=== PATIENT | male | born 1955 | race Caucasian/White ===

== ENCOUNTER 2021-02-08 19:47 | Inpatient (IN) | payer OTHER, MEDICARE ==
[~2021-02-08 19:47] MED LIST: Iopamidol-370 76% 500 ML 1 ML ONE
[2021-02-08] MEDS ORDERED: Boostrix 0.5 ML (Tdap) VIAL ONE (19:54)
[2021-02-08] MEDS ORDERED: Ondansetron PF 4 MG/2 ML Vial ONE (19:56)
[2021-02-08] MEDS ORDERED: Ketamine 50 MG/ML (10ML VIAL) ONE (20:15)
[2021-02-08 20:42] LABS: #Eosinphils 0.2 thou/uL (0.0-0.7); #Lymphocytes 1.5 thou/uL (1.20-3.40); #Monocytes 0.6 thou/uL (0.11-0.59); #Neutrophils 8.5 thou/uL (1.40-6.50); %Eosinophils 1.7 % (0.0-10.0); %Lymphocytes 14.1 % (21.0-51.0); %Monocytes 5.2 % (0.0-10.0); %Neutrophils 78.9 % (42.0-75.0); Hemoglobin 12.7 g/dL (14.0-18.0); Mean Corpuscular HGB CONC 35.9 g/dL (32.0-36.0); Mean Corpuscular Hemoglobin 31.1 pg (27.0-31.0); Mean Corpuscular Volume 86.8 fL (78.0-98.0); Platelet Count 237 thou/uL (130-400); RBC Distribution Width 11.9 % (11.5-14.5); Red Blood Cell (RBC) Count 4.08 mill/uL (4.70-6.10); White Blood Cell (WBC) Count 10.7 thou/uL (4.8-10.8)
[2021-02-08 20:54] LABS: INR-International Normal Ratio 1.1; PTT 25.4 sec (22.9-36.1); Prothrombin Time 14.5 sec (12.0-14.7)
[2021-02-08 21:00] LABS: ALT (SGPT) 45 U/L (8-55); AST (SGOT) 43 U/L (5-34); Albumin 3.8 g/dL (3.4-4.8); Alkaline Phosphatase 72 U/L (40-110); Anion Gap 16 mmol/L (10-20); BUN (Urea Nitrogen) 22 mg/dL (8.4-25.7); Bilirubin, Total 0.4 mg/dL (0.2-1.2); Calc. Creatinine Clearance 0 mL/min (70-130); Carbon Dioxide 23 mmol/L (23-31); Chloride 99 mmol/L (98-107); Globulin 2.2 g/dL (2.4-3.5); Glucose 278 mg/dL (80-115); Lipase 62 U/L (8-78); Potassium 3.1 mmol/L (3.5-5.1); Sodium 135 mmol/L (136-145)
[2021-02-08] MEDS ORDERED: Morphine 2 MG/ML VIAL ONE (21:12)
[2021-02-08 22:03] VITALS: BMI 33.7
[2021-02-08] MEDS ORDERED: Cyclobenzaprine 10 MG TAB PO PRN (22:03)
[2021-02-08] MEDS ORDERED: Ondansetron PF 4 MG/2 ML Vial IVP PRN (22:03)
[2021-02-08] MEDS ORDERED: Ondansetron ODT 4 MG TAB PO PRN (22:03)
[2021-02-08] MEDS ORDERED: Dextrose 50% Abboject 50 ML SYRINGE SLOW IVP PRN (22:03)
[2021-02-08] MEDS ORDERED: Morphine 2 MG/ML VIAL SLOW IVP PRN (22:03)
[2021-02-08] MEDS ORDERED: Dextrose 5% in Water 1,000 ML IV PRN (22:03)
[2021-02-08] MEDS ORDERED: Promethazine HCl 25 MG/ML VIAL IM PRN (22:03)
[2021-02-08] MEDS ORDERED: hydrALAZINE 20 MG/ML VIAL SLOW IVP PRN (22:03)
[2021-02-08] MEDS ORDERED: traMADol HCl 50 MG TAB PO PRN (22:03)
[2021-02-08] MEDS ORDERED: Ketorolac Tromethamine 30 MG/ML VIAL IVP SCH (22:15)
[2021-02-08] MEDS ORDERED: Famotidine 20 MG TAB PO SCH (22:15)
[2021-02-08] MEDS: Sodium Chloride 0.9% 1,000 ML IV SCH (22:31)
[2021-02-08] MEDS: traMADol HCl 50 MG TAB PO SCH (23:03)
[2021-02-08] MEDS: Acetaminophen 500 MG TAB PO SCH (23:04)
[2021-02-09] MEDS: Acetaminophen 500 MG TAB PO SCH ×3 (05:06→23:52)
[2021-02-09] MEDS: traMADol HCl 50 MG TAB PO SCH ×3 (05:08→23:50)
[2021-02-09 05:27] LABS: #Lymphocytes 0.5 thou/uL (1.20-3.40); #Monocytes 0.6 thou/uL (0.11-0.59); #Neutrophils 5.2 thou/uL (1.40-6.50); %Basophils 0.1 % (0.0-1.0); %Eosinophils 0.1 % (0.0-10.0); %Lymphocytes 7.8 % (21.0-51.0); %Monocytes 9.3 % (0.0-10.0); %Neutrophils 82.8 % (42.0-75.0); Hemoglobin 10.5 g/dL (14.0-18.0); Mean Corpuscular HGB CONC 34.2 g/dL (32.0-36.0); Mean Corpuscular Volume 87.7 fL (78.0-98.0); Mean Platelet Volume 8.1 fL (7.4-10.4); Platelet Count 218 thou/uL (130-400); RBC Distribution Width 11.8 % (11.5-14.5); Red Blood Cell (RBC) Count 3.51 mill/uL (4.70-6.10); White Blood Cell (WBC) Count 6.3 thou/uL (4.8-10.8)
[2021-02-09 05:51] LABS: Anion Gap 12 mmol/L (10-20); BUN (Urea Nitrogen) 24 mg/dL (8.4-25.7); Calc. Creatinine Clearance 72 mL/min (70-130); Calcium 7.7 mg/dL (7.8-10.44); Carbon Dioxide 25 mmol/L (23-31); Chloride 104 mmol/L (98-107); Glucose 250 mg/dL (80-115); Magnesium 1.6 mg/dL (1.6-2.6); Phosphorus 2.5 mg/dL (2.3-4.7); Potassium 3.2 mmol/L (3.5-5.1); Sodium 138 mmol/L (136-145)
[2021-02-09] MEDS ORDERED: Ibuprofen 200 MG TAB PO SCH (06:00)
[2021-02-09] MEDS: Sodium Chloride 0.9% 1,000 ML IV SCH (07:00)
[2021-02-09] MEDS ORDERED: CEFAZOLIN 2 GM in Premix Bag 1 BAG IVPB SCH (08:15)
[2021-02-09] MEDS: Famotidine 20 MG TAB PO SCH ×2 (09:51→20:18)
[2021-02-09] MEDS: Gabapentin 300 MG CAP PO SCH ×2 (10:00→20:19)
[2021-02-09] MEDS ORDERED: Fentanyl 100 MCG/2 ML VIAL ONE ×3 (13:44→17:58)
[2021-02-09] MEDS ORDERED: Dexamethasone 20 MG/5 ML VIAL ONE (16:11)
[2021-02-09] MEDS ORDERED: PROPOFOL 200 MG/20 ML VIAL ONE (16:11)
[2021-02-09] MEDS ORDERED: Rocuronium Bromide 10 MG/ML (10ML VIAL) ONE (16:11)
[2021-02-09] MEDS ORDERED: Lidocaine 1% PF 5 ML VIAL ONE (16:11)
[2021-02-09] MEDS ORDERED: Glycopyrrolate 0.2 MG/ML 5 ML SYRINGE ONE (16:11)
[2021-02-09] MEDS ORDERED: PHENYLEPHRINE-NS 100 MCG/ML 10 ML SYRINGE ONE (16:11)
[2021-02-09] MEDS ORDERED: Ondansetron PF 4 MG/2 ML Vial ONE (16:11)
[2021-02-09] MEDS ORDERED: Meperidine HCl/PF 25 MG/ML VIAL ONE (17:58)
[2021-02-09] MEDS ORDERED: Morphine Sulfate 2 MG/ML SYRINGE SLOW IVP PRN (18:01)
[2021-02-09] MEDS ORDERED: Meperidine HCl/PF 25 MG/ML VIAL SLOW IVP PRN (18:01)
[2021-02-09] MEDS ORDERED: Ondansetron HCl/PF 4 MG/2 ML Vial IVP PRN (18:01)
[2021-02-09] MEDS ORDERED: Promethazine HCl 25 MG/ML VIAL IVPB PRN (18:01)
[2021-02-09] MEDS ORDERED: Promethazine HCl 25 MG/ML VIAL IM PRN (18:01)
[2021-02-09] MEDS: CEFAZOLIN 2 GM in Premix Bag 1 BAG IVPB SCH (23:52)
[2021-02-10] MEDS: traMADol HCl 50 MG TAB PO SCH ×5 (04:14→23:47)
[2021-02-10] MEDS: Acetaminophen 500 MG TAB PO SCH ×5 (04:14→23:47)
[2021-02-10 05:37] LABS: #Lymphocytes 0.4 thou/uL (1.20-3.40); #Monocytes 0.4 thou/uL (0.11-0.59); #Neutrophils 5.1 thou/uL (1.40-6.50); %Eosinophils 0.2 % (0.0-10.0); %Lymphocytes 6.8 % (21.0-51.0); %Monocytes 7.1 % (0.0-10.0); Hemoglobin 9.2 g/dL (14.0-18.0); Mean Corpuscular HGB CONC 33.8 g/dL (32.0-36.0); Mean Corpuscular Hemoglobin 29.8 pg (27.0-31.0); Mean Corpuscular Volume 88.2 fL (78.0-98.0); Mean Platelet Volume 8.1 fL (7.4-10.4); Platelet Count 210 thou/uL (130-400); Red Blood Cell (RBC) Count 3.09 mill/uL (4.70-6.10); White Blood Cell (WBC) Count 5.9 thou/uL (4.8-10.8)
[2021-02-10 07:02] LABS: Bacteria/HPF None Seen HPF (None Seen); Bilirubin Negative (Negative); Blood, Urine Negative (Negative); Clarity Clear (Clear); Glucose, Urine (Dipstick) Normal (Negative); Ketone, Urine Trace mg/dL (Negative); Leukocyte Negative Leu/uL (Negative); Nitrite Negative (Negative); Protein, Urine (Dipstick) 20 mg/dL (Neg-Trace); RBC/HPF 0-3 HPF (0-3); Specific Gravity, Urine 1.023 (1.002-1.036); Squamous Epithelial 0-3 HPF (0-3); Urobilinogen Normal mg/dL (Less than 2); WBC/HPF 0-3 HPF (0-3); pH, Urine 5.5 (5.0-9.0)
[2021-02-10 07:04] LABS: Urine Culture Reflex No No
[2021-02-10] MEDS: Famotidine 20 MG TAB PO SCH ×2 (08:42→20:38)
[2021-02-10] MEDS: Tamsulosin HCl 0.4 MG CAP PO SCH ×2 (08:43→20:38)
[2021-02-10] MEDS: Gabapentin 300 MG CAP PO SCH ×2 (08:43→20:38)
[2021-02-10] MEDS: Amlodipine 5 mg/Benazepril 10 mg CAP PO SCH (08:43)
[2021-02-10] MEDS: Hydrochlorothiazide 25 MG TAB PO SCH (08:43)
[2021-02-10] MEDS: CEFAZOLIN 2 GM in Premix Bag 1 BAG IVPB SCH (08:44)
[2021-02-10 09:36] LABS: #Lymphocytes 0.5 thou/uL (1.20-3.40); #Monocytes 0.5 thou/uL (0.11-0.59); #Neutrophils 4.8 thou/uL (1.40-6.50); %Basophils 0.1 % (0.0-1.0); %Lymphocytes 8.4 % (21.0-51.0); %Monocytes 7.9 % (0.0-10.0); %Neutrophils 83.6 % (42.0-75.0); Hemoglobin 8.8 g/dL (14.0-18.0); Mean Corpuscular HGB CONC 35.8 g/dL (32.0-36.0); Mean Corpuscular Hemoglobin 31.7 pg (27.0-31.0); Mean Corpuscular Volume 88.5 fL (78.0-98.0); Mean Platelet Volume 8.1 fL (7.4-10.4); Platelet Count 190 thou/uL (130-400); RBC Distribution Width 12.1 % (11.5-14.5); Red Blood Cell (RBC) Count 2.77 mill/uL (4.70-6.10); White Blood Cell (WBC) Count 5.7 thou/uL (4.8-10.8)
[2021-02-10 09:38] LABS: Phosphorus 2.7 mg/dL (2.3-4.7)
[2021-02-10 09:48] LABS: Anion Gap 14 mmol/L (10-20); BUN (Urea Nitrogen) 19 mg/dL (8.4-25.7); Calc. Creatinine Clearance 84 mL/min (70-130); Calcium 7.2 mg/dL (7.8-10.44); Carbon Dioxide 24 mmol/L (23-31); Chloride 102 mmol/L (98-107); Glucose 282 mg/dL (80-115); Magnesium 1.5 mg/dL (1.6-2.6); Potassium 3.1 mmol/L (3.5-5.1); Sodium 137 mmol/L (136-145)
[2021-02-10] MEDS: metFORMIN 500 MG TAB PO SCH ×2 (09:48→20:38)
[2021-02-10] MEDS: Enoxaparin Sodium 40 MG/0.4 ML SYRINGE SC SCH (09:48)
[2021-02-10] MEDS ORDERED: Potassium Phosphate 30 MMOL, Magnesium Sulfate 4 GM in Sodium Chloride 0.9% 250 ML IVPB SCH (17:00)
[2021-02-10] MEDS ORDERED: Melatonin 3 MG TAB PO PRN (19:21)
[2021-02-10] MEDS: Senokot S 8.6-50 MG TAB PO SCH (20:37)
[2021-02-10] MEDS ORDERED: Atorvastatin Calcium 20 MG TAB PO SCH (21:00)
[2021-02-10] MEDS ORDERED: Simvastatin 40 MG TAB PO SCH (21:00)
[2021-02-11 04:53] LABS: Hemoglobin 9.2 g/dL (14.0-18.0); Mean Corpuscular HGB CONC 36.1 g/dL (32.0-36.0); Mean Corpuscular Hemoglobin 31.6 pg (27.0-31.0); Mean Corpuscular Volume 87.6 fL (78.0-98.0); Mean Platelet Volume 7.6 fL (7.4-10.4); Platelet Count 207 thou/uL (130-400); RBC Distribution Width 12.1 % (11.5-14.5); Red Blood Cell (RBC) Count 2.92 mill/uL (4.70-6.10)
[2021-02-11 05:04] LABS: Band 3 % (5-11); Lymphocytes 15 % (21-51); MDiff Complete? YES; Monocytes 8 % (0-10); Neutrophil 74 % (42-75)
[2021-02-11 05:07] LABS: Anion Gap 13 mmol/L (10-20); BUN (Urea Nitrogen) 14 mg/dL (8.4-25.7); Calc. Creatinine Clearance 101 mL/min (70-130); Calcium 7.8 mg/dL (7.8-10.44); Carbon Dioxide 28 mmol/L (23-31); Chloride 100 mmol/L (98-107); Glucose 218 mg/dL (80-115); Magnesium 2.3 mg/dL (1.6-2.6); Phosphorus 2.2 mg/dL (2.3-4.7); Sodium 138 mmol/L (136-145)
[2021-02-11 05:12] LABS: Potassium 2.6 mmol/L (3.5-5.1)
[2021-02-11] MEDS: Acetaminophen 500 MG TAB PO SCH ×2 (05:54→12:44)
[2021-02-11] MEDS: traMADol HCl 50 MG TAB PO SCH ×2 (05:55→12:45)
[2021-02-11] MEDS ORDERED: Potassium Phosphate 30 MMOL in Sodium Chloride 0.9% 250 ML 250 ML IVPB SCH (06:00)
[2021-02-11] MEDS ORDERED: Polyethylene Glycol 3350 17 GM Packet PO SCH (09:00)
[2021-02-11] MEDS: Amlodipine 5 mg/Benazepril 10 mg CAP PO SCH (09:43)
[2021-02-11] MEDS: Tamsulosin HCl 0.4 MG CAP PO SCH (09:43)
[2021-02-11] MEDS: Senokot S 8.6-50 MG TAB PO SCH (09:43)
[2021-02-11] MEDS: metFORMIN 500 MG TAB PO SCH (09:44)
[2021-02-11] MEDS: Gabapentin 300 MG CAP PO SCH (09:44)
[2021-02-11] MEDS: Hydrochlorothiazide 25 MG TAB PO SCH (09:44)
[2021-02-11] MEDS: Famotidine 20 MG TAB PO SCH (09:45)
[2021-02-11] MEDS: Enoxaparin Sodium 40 MG/0.4 ML SYRINGE SC SCH (09:46)
[2021-02-11 10:50] VITALS: BP 115/73; TEMP 97.8
== END 2021-02-11 13:23 | DRG 481 ==
LOC: ERS 19:47 → SURG A 20:59
PROVIDERS: ADMIT Surgery; ATTEND Surgery
PROC: 0QS706Z Reposition Left Upper Femur with Intramedullary Internal Fixation Device, Open Approach (ICD-10-PCS; principal; 2021-02-09)
DX: S72.22XA Displaced subtrochanteric fracture of left femur, initial encounter for closed fracture (principal); S22.42XA Multiple fractures of ribs, left side, initial encounter for closed fracture; S32.029A Unspecified fracture of second lumbar vertebra, initial encounter for closed fracture; S32.039A Unspecified fracture of third lumbar vertebra, initial encounter for closed fracture; S32.049A Unspecified fracture of fourth lumbar vertebra, initial encounter for closed fracture; N17.9 Acute kidney failure, unspecified; I10 Essential (primary) hypertension; N40.1 Benign prostatic hyperplasia with lower urinary tract symptoms; E11.9 Type 2 diabetes mellitus without complications; R33.8 Other retention of urine; Y92.411 Interstate highway as the place of occurrence of the external cause; Z79.899 Other long term (current) drug therapy; V49.50XA Passenger injured in collision with unspecified motor vehicles in traffic accident, initial encounter
CPT/HCPCS: 36415; 36416; 70450; 71045; 71260; 72125; 72170; 74177; 76000; 80048; 80053; 80307; 81001; 83690; 83735; 84100; 85007; 85025; 85027; 85610; 85730; 86850; 86900; 86901; 90471; 90715; 93005; 96374; 96375; C1713; G0390; J0690; J1100; J1650; J1885; J2175; J2270; J2405; J2704; J3010; J3475; J7030; J7050; Q9967

== ENCOUNTER 2021-02-26 09:56 | Outpatient (CLI) | payer OTHER, MEDICARE | END 2021-02-26 09:57 | disposition home or self-care (01) | LOC: BICRAD 09:56 | PROVIDERS: ATTEND Surgery | DX: V89.2XXA Person injured in unspecified motor-vehicle accident, traffic, initial encounter (principal); J90 Pleural effusion, not elsewhere classified | CPT/HCPCS: 71046 ==

== ENCOUNTER 2022-04-13 10:57 | Outpatient (CLI) | payer MEDICARE, OTHER ==
[2022-04-13 12:03] LABS: Hemoglobin 12.5 g/dL (13.5-17.5); Mean Corpuscular Hemoglobin 28.9 pg (27.0-33.0); Mean Corpuscular Volume 87.7 fl (81.2-95.1); Mean Platelet Volume 10.4 fl (7.4-10.4); Platelet Count 210 10x3/uL (150-450); RBC Distribution Width 13.3 % (11.5-14.5); Red Blood Cell (RBC) Count 4.32 10x6/uL (4.32-5.72)
[2022-04-13 12:09] LABS: Anion Gap 15 mmol/L (10-20); BUN (Urea Nitrogen) 22 mg/dL (8.4-25.7); Calc. Creatinine Clearance 0 mL/min (70-130); Carbon Dioxide 28 mmol/L (23-31); Chloride 102 mmol/L (98-107); Estimated GFR 59; Glucose 186 mg/dL (80-115); Potassium 3.8 mmol/L (3.5-5.1); Sodium 141 mmol/L (136-145)
[2022-04-13 12:11] LABS: Prothrombin Time 10.5 sec (9.5-12.1)
[2022-04-13 13:02] LABS: Bilirubin Neg (Negative); Blood, Urine Negative (Negative); Clarity Clear (Clear); Glucose, Urine (Dipstick) Normal (Negative); Ketone, Urine Negative (Negative); Leukocyte Negative (Negative); Nitrite Negative (Negative); Protein, Urine (Dipstick) Negative (Neg-Trace); Specific Gravity, Urine 1.015 (1.002-1.036); Urobilinogen Normal mg/dL (Less than 2)
[2022-04-13 13:20] LABS: RBC/HPF 0-3 HPF (0-3); Squamous Epithelial 0-3 HPF (0-3); WBC/HPF 0-3 HPF (0-3)
[2022-04-13 13:21] LABS: Bacteria/HPF Rare-Few HPF (None Seen); Mucous/LPF 1+ LPF (<2+)
== END 2022-04-13 10:58 | disposition home or self-care (01) ==
LOC: LABBT 10:57
PROVIDERS: ATTEND Urology
DX: Z01.818 Encounter for other preprocedural examination (principal); Z20.822 Contact with and (suspected) exposure to COVID-19
CPT/HCPCS: 80048; 81001; 85027; 85610; 85730; 87086; 87811; 93005; 93010

== ENCOUNTER 2022-04-15 05:35 | Observation (INO) | payer MEDICARE, OTHER ==
[2022-04-13 13:16] VITALS: BMI 32.3
[2022-04-15] MEDS ORDERED: fentaNYL Citrate/PF 100 MCG/2 ML SYRINGE ONE (06:23)
[2022-04-15] MEDS ORDERED: Dexmedetomidine 200 MCG/2 ML VIAL ONE (06:24)
[2022-04-15] MEDS ORDERED: B & O ONE (07:26)
[2022-04-15] MEDS ORDERED: Levofloxacin 500 mg/D5W 100 ml Premix Bag ONE (07:35)
[2022-04-15] MEDS ORDERED: PROPOFOL 200 MG/20 ML VIAL ONE (07:50)
[2022-04-15] MEDS ORDERED: Dexamethasone 20 MG/5 ML VIAL ONE (07:50)
[2022-04-15] MEDS ORDERED: Glycopyrrolate 0.2 MG/ML 5 ML SYRINGE ONE (07:50)
[2022-04-15] MEDS ORDERED: Ondansetron PF 4 MG/2 ML Vial ONE (07:50)
[2022-04-15] MEDS ORDERED: Hyoscyamine Sulfate SL 0.125 mg Tablet SL PRN (09:06)
[2022-04-15] MEDS ORDERED: Acetaminophen 500 MG TAB PO PRN (09:06)
[2022-04-15] MEDS ORDERED: HYDROcodone/Acetaminophen 5/325 mg Tablet PO PRN (09:06)
[2022-04-15] MEDS ORDERED: Oxybutynin 5 MG TAB PO PRN (09:06)
[2022-04-15] MEDS ORDERED: Mag-Al 1200 mg/1200 mg/30 ML UDCUP PO PRN (09:06)
[2022-04-15] MEDS ORDERED: diphenhydrAMINE 25 MG CAP PO PRN (09:06)
[2022-04-15] MEDS ORDERED: Ondansetron PF 4 MG/2 ML Vial IVP PRN (09:06)
[2022-04-15] MEDS ORDERED: hydrALAZINE 20 MG/ML VIAL SLOW IVP PRN (09:06)
[2022-04-15] MEDS ORDERED: Morphine 2 MG/ML VIAL SLOW IVP PRN (09:06)
[2022-04-15] MEDS ORDERED: HumaLOG 300 UNITS/3 ML VIAL SC PRN (09:10)
[2022-04-15] MEDS ORDERED: Dextrose 50% Abboject 50 ML SYRINGE SLOW IVP PRN (09:10)
[2022-04-15] MEDS ORDERED: Dextrose 5% in Water 1,000 ML IV PRN (09:10)
[2022-04-15] MEDS ORDERED: traMADol HCl 50 MG TAB PO PRN (09:15)
[2022-04-15] MEDS ORDERED: Phenazopyridine HCl 95 MG TAB PO PRN (09:31)
[2022-04-15] MEDS ORDERED: Atorvastatin Calcium 20 MG TAB PO SCH (21:00)
[2022-04-15] MEDS ORDERED: Gabapentin 300 MG CAP PO SCH (21:00)
[2022-04-15] MEDS: Amitriptyline HCl 10 MG TAB PO SCH (21:13)
[2022-04-15] MEDS: metFORMIN 500 MG TAB PO SCH (21:14)
[2022-04-15] MEDS: Docusate 100 MG CAP PO SCH (21:15)
[2022-04-15] MEDS ORDERED: ALPRAZolam 0.25 MG TAB PO SCH (21:30)
[2022-04-16] MEDS: Fluticasone Propionate Nasal Spray 16 gm Bottle NASAL SCH ×2 (01:10→09:28)
[2022-04-16] MEDS: FLUOCINONIDE 0.05% TOP SCH ×2 (01:10→09:28)
[2022-04-16 05:34] LABS: #Lymphocytes 0.5 thou/uL (1.20-3.40); #Monocytes 0.5 thou/uL (0.11-0.59); #Neutrophils 6.7 thou/uL (1.40-6.50); %Eosinophils 0.2 % (0.0-10.0); %Lymphocytes 6.6 % (21.0-51.0); %Monocytes 6.1 % (0.0-10.0); %Neutrophils 87.2 % (42.0-75.0); Hemoglobin 12.4 g/dL (14.0-18.0); Mean Corpuscular HGB CONC 34.3 g/dL (32.0-36.0); Mean Corpuscular Hemoglobin 30.4 pg (27.0-31.0); Mean Corpuscular Volume 88.6 fL (78.0-98.0); Mean Platelet Volume 8.3 fL (7.4-10.4); Platelet Count 198 thou/uL (130-400); RBC Distribution Width 12.6 % (11.5-14.5); Red Blood Cell (RBC) Count 4.07 mill/uL (4.70-6.10); White Blood Cell (WBC) Count 7.7 thou/uL (4.8-10.8)
[2022-04-16 05:56] LABS: BUN (Urea Nitrogen) 20 mg/dL (8.4-25.7); Calc. Creatinine Clearance 81 mL/min (70-130); Calcium 8.2 mg/dL (7.8-10.44); Carbon Dioxide 24 mmol/L (23-31); Chloride 99 mmol/L (98-107); Estimated GFR 61; Glucose 316 mg/dL (80-115); Potassium 3.6 mmol/L (3.5-5.1); Sodium 134 mmol/L (136-145)
[2022-04-16 06:16] LABS: Anion Gap 16 mmol/L (10-20)
[2022-04-16] MEDS ORDERED: ALPRAZolam 0.25 MG TAB PO SCH ×2 (09:00→21:00)
[2022-04-16] MEDS ORDERED: Lisinopril 20 MG TAB PO SCH (09:00)
[2022-04-16] MEDS ORDERED: Amlodipine 10 MG TAB PO SCH (09:00)
[2022-04-16] MEDS ORDERED: Hydrochlorothiazide 25 MG TAB PO SCH (09:00)
[2022-04-16] MEDS ORDERED: DULoxetine 60 MG CAP PO SCH (09:00)
[2022-04-16] MEDS: metFORMIN 500 MG TAB PO SCH (09:15)
[2022-04-16] MEDS: Docusate 100 MG CAP PO SCH (09:16)
[2022-04-16] MEDS: Amitriptyline HCl 10 MG TAB PO SCH (09:28)
[2022-04-16 11:18] VITALS: BP 155/83; TEMP 98.2
== END 2022-04-16 13:56 | disposition home or self-care (01) ==
LOC: SDC 05:35 → SURG A 09:12
PROVIDERS: ADMIT Urology; ATTEND Urology
PROC: 0V507ZZ Destruction of Prostate, Via Natural or Artificial Opening (ICD-10-PCS; principal; 2022-04-15)
DX: N40.1 Benign prostatic hyperplasia with lower urinary tract symptoms (principal); N13.8 Other obstructive and reflux uropathy; R33.8 Other retention of urine; E11.9 Type 2 diabetes mellitus without complications; E78.00 Pure hypercholesterolemia, unspecified; I10 Essential (primary) hypertension; Z79.84 Long term (current) use of oral hypoglycemic drugs; Z79.899 Other long term (current) drug therapy
CPT/HCPCS: 36415; 36416; 80048; 85025; 88305; 96374; G0378; J1100; J1815; J1956; J2405; J2704

== ENCOUNTER 2022-08-20 10:06 | Outpatient (CLI) | payer MEDICARE | END 2022-08-20 10:07 | disposition home or self-care (01) | LOC: CT 10:06 | PROVIDERS: ATTEND Urology | DX: D35.01 Benign neoplasm of right adrenal gland (principal); R16.1 Splenomegaly, not elsewhere classified | CPT/HCPCS: 74170; 82565 ==

== ENCOUNTER 2023-09-08 07:38 | Outpatient (CLI) | payer MEDICARE, OTHER | END 2023-09-08 07:39 | disposition home or self-care (01) | LOC: SCSMRI 07:38 | PROVIDERS: ATTEND Nurse Practitioner Family | DX: M51.16 Intervertebral disc disorders with radiculopathy, lumbar region (principal); M47.26 Other spondylosis with radiculopathy, lumbar region; M47.817 Spondylosis without myelopathy or radiculopathy, lumbosacral region; M48.061 Spinal stenosis, lumbar region without neurogenic claudication; M96.1 Postlaminectomy syndrome, not elsewhere classified | CPT/HCPCS: 72148 ==

== ENCOUNTER 2024-03-20 15:24 | Inpatient (IN) | payer MEDICARE, OTHER ==
[~2024-03-20 15:24] MED LIST changes: -Iopamidol-370 76% 500 ML 1 ML ONE; +Iopamidol-370 76% 500 ML MDV (1 ML CHARGE) ONE
[2024-03-20 17:45] LABS: Bilirubin Negative (Negative); Blood, Urine 3+ (Negative); Clarity Clear (Clear); Glucose, Urine (Dipstick) Normal (Negative); Ketone, Urine Trace mg/dL (Negative); Leukocyte Negative Leu/uL (Negative); Nitrite Negative (Negative); Protein, Urine (Dipstick) 300 mg/dL (Neg-Trace); Specific Gravity, Urine 1.016 (1.002-1.036); Urobilinogen Normal mg/dL (Less than 2); pH, Urine 6.5 (5.0-9.0)
[2024-03-20 18:04] LABS: CAUTI Indications for Culture Dysuria,urgency,freq; RBC/HPF 21-50 HPF (0-3); WBC/HPF 0-3 HPF (0-3)
[2024-03-20 18:05] LABS: Bacteria/HPF Rare-Few HPF (None Seen)
[2024-03-20 18:06] LABS: Urine Culture Reflex No No
[2024-03-20] MEDS ORDERED: Acetaminophen 500 MG TAB ONE (20:02)
[2024-03-20] MEDS ORDERED: Losartan 25 MG TAB ONE (20:22)
[2024-03-20] MEDS ORDERED: Amlodipine 5 MG TAB ONE (20:22)
[2024-03-20 20:30] LABS: #Basophils Less than 0.03 10x3/uL (0.0-0.2); #Eosinphils Less than 0.03 10x3/uL (0.0-0.7); %Basophils 0.2 % (0.0-1.0); %Lymphocytes 8.9 % (21.0-51.0); %Monocytes 6.1 % (0.0-10.0); %Neutrophils 84.1 % (42.0-75.0); Hematocrit 34.5 % (42.0-52.0); Hemoglobin 11.7 g/dL (14.0-18.0); Mean Corpuscular HGB CONC 33.9 g/dL (32.0-36.0); Mean Corpuscular Hemoglobin 30.2 pg (27.0-31.0); Mean Corpuscular Volume 88.9 fL (78.0-98.0); Mean Platelet Volume 10.4 fL (7.4-10.4); Platelet Count 189 10x3/uL (130-400); RBC Distribution Width 13.4 % (11.5-14.5); Red Blood Cell (RBC) Count 3.88 mill/uL (4.70-6.10)
[2024-03-20 20:49] LABS: ALT (SGPT) 21 U/L (8-55); AST (SGOT) 83 U/L (5-34); Albumin 3.3 g/dL (3.4-4.8); Alkaline Phosphatase 84 U/L (40-110); Anion Gap 13 mmol/L (10-20); BUN (Urea Nitrogen) 24 mg/dL (8.4-25.7); Bilirubin, Total 0.8 mg/dL (0.2-1.2); Calc. Creatinine Clearance 0 mL/min (70-130); Calcium 8.7 mg/dL (7.8-10.44); Carbon Dioxide 25 mmol/L (23-31); Chloride 105 mmol/L (98-107); Estimated GFR 36; Glucose 123 mg/dL (80-115); Magnesium 1.7 mg/dL (1.6-2.6); Potassium 3.4 mmol/L (3.5-5.1); Protein, Total 6.3 g/dL (5.8-8.1); Sodium 140 mmol/L (136-145)
[2024-03-20 20:59] LABS: CK (CPK) 7464 U/L (30-200)
[2024-03-20 21:29] LABS: Influenza A by NAA Not Detected (NotDetected); Influenza B by NAA Not Detected (NotDetected); SARS-CoV-2 NAA Rapid Test Not Detected (NotDetected)
[2024-03-20 22:44] LABS: Phosphorus 2.2 mg/dL (2.3-4.7)
[2024-03-20] MEDS ORDERED: Oxybutynin 5 MG TAB PO PRN (23:15)
[2024-03-20] MEDS ORDERED: Ondansetron PF 4 MG/2 ML Vial IVP PRN (23:23)
[2024-03-20] MEDS ORDERED: Dextrose 5% in Water 1,000 ML IV PRN (23:23)
[2024-03-20] MEDS ORDERED: Glucagon 1 MG/ML KIT IM PRN (23:23)
[2024-03-20] MEDS ORDERED: Dextrose 50% Abboject 50 ML SYRINGE SLOW IVP PRN (23:23)
[2024-03-21] MEDS ORDERED: Potassium Chloride 20 MEQ TAB ONE ×2 (00:03→09:24)
[2024-03-21] MEDS: Potassium Chloride 20 MEQ TAB PO SCH ×2 (00:11→09:30)
[2024-03-21] MEDS: Clindamycin/D5W 900 MG in Premix 1 BAG IVPB SCH (00:11)
[2024-03-21 01:02] LABS: Troponin I 0.041 ng/mL (< 0.028)
[2024-03-21] MEDS: Lactated Ringer's 1,000 ML IV SCH ×2 (03:02→12:00)
[2024-03-21 07:12] LABS: #Basophils 0.03 10x3/uL (0.0-0.2); #Eosinphils Less than 0.03 10x3/uL (0.0-0.7); %Basophils 0.3 % (0.0-1.0); %Eosinophils 0.1 % (0.0-10.0); %Lymphocytes 7.4 % (21.0-51.0); %Monocytes 6.5 % (0.0-10.0); %Neutrophils 85.1 % (42.0-75.0); Hematocrit 32.9 % (42.0-52.0); Hemoglobin 10.9 g/dL (14.0-18.0); Mean Corpuscular HGB CONC 33.1 g/dL (32.0-36.0); Mean Corpuscular Hemoglobin 29.2 pg (27.0-31.0); Mean Corpuscular Volume 88.2 fL (78.0-98.0); Mean Platelet Volume 10.3 fL (7.4-10.4); Platelet Count 178 10x3/uL (130-400); RBC Distribution Width 13.4 % (11.5-14.5); Red Blood Cell (RBC) Count 3.73 mill/uL (4.70-6.10)
[2024-03-21 07:31] LABS: Troponin I 0.036 ng/mL (< 0.028)
[2024-03-21 07:40] LABS: CK (CPK) 5172 U/L (30-200)
[2024-03-21 07:55] LABS: Anion Gap 14 mmol/L (10-20); BUN (Urea Nitrogen) 22 mg/dL (8.4-25.7); Calc. Creatinine Clearance 0 mL/min (70-130); Calcium 8.5 mg/dL (7.8-10.44); Carbon Dioxide 23 mmol/L (23-31); Chloride 109 mmol/L (98-107); Estimated GFR 44; Glucose 132 mg/dL (80-115); Potassium 3.7 mmol/L (3.5-5.1); Sodium 142 mmol/L (136-145)
[2024-03-21] MEDS ORDERED: Amlodipine 5 MG TAB ONE (09:24)
[2024-03-21] MEDS: Amlodipine 10 MG TAB PO SCH (09:29)
[2024-03-21] MEDS: Docusate 100 MG CAP PO SCH (10:49)
[2024-03-21 17:46] VITALS: BMI 34.7
[2024-03-21] MEDS: ALPRAZolam 0.25 MG TAB PO SCH (20:22)
[2024-03-21] MEDS: DULoxetine 60 MG CAP PO SCH (20:22)
[2024-03-21] MEDS: Amitriptyline HCl 10 MG TAB PO SCH (20:22)
[2024-03-21] MEDS: Gabapentin 300 MG CAP PO SCH (20:23)
[2024-03-22 03:57] LABS: #Basophils Less than 0.03 10x3/uL (0.0-0.2); %Basophils 0.2 % (0.0-1.0); %Eosinophils 1.1 % (0.0-10.0); %Lymphocytes 14.8 % (21.0-51.0); %Monocytes 7.7 % (0.0-10.0); %Neutrophils 75.8 % (42.0-75.0); Hematocrit 33.4 % (42.0-52.0); Mean Corpuscular HGB CONC 32.9 g/dL (32.0-36.0); Mean Corpuscular Hemoglobin 29.6 pg (27.0-31.0); Mean Corpuscular Volume 89.8 fL (78.0-98.0); Mean Platelet Volume 10.3 fL (7.4-10.4); Platelet Count 200 10x3/uL (130-400); RBC Distribution Width 13.3 % (11.5-14.5); Red Blood Cell (RBC) Count 3.72 mill/uL (4.70-6.10)
[2024-03-22 04:26] LABS: Anion Gap 14 mmol/L (10-20); BUN (Urea Nitrogen) 21 mg/dL (8.4-25.7); CK (CPK) 2409 U/L (30-200); Calc. Creatinine Clearance 58 mL/min (70-130); Calcium 8.9 mg/dL (7.8-10.44); Carbon Dioxide 25 mmol/L (23-31); Chloride 107 mmol/L (98-107); Estimated GFR 40; Glucose 152 mg/dL (80-115); Potassium 3.5 mmol/L (3.5-5.1); Sodium 142 mmol/L (136-145)
[2024-03-22] MEDS: Potassium Chloride 20 MEQ TAB PO SCH (08:50)
[2024-03-22] MEDS: Lactated Ringer's 1,000 ML IV SCH (11:06)
[2024-03-22] MEDS: cefTRIAXone\\ROCEPHIN 1 GM in Sodium Chloride 0.9% 100 ML IVPB SCH (11:07)
[2024-03-22 15:45] VITALS: BMI 34.7
[2024-03-23 04:46] LABS: #Basophils Less than 0.03 10x3/uL (0.0-0.2); %Basophils 0.5 % (0.0-1.0); %Eosinophils 2.2 % (0.0-10.0); %Lymphocytes 20.3 % (21.0-51.0); %Monocytes 11.4 % (0.0-10.0); %Neutrophils 64.9 % (42.0-75.0); Hematocrit 32.5 % (42.0-52.0); Hemoglobin 10.6 g/dL (14.0-18.0); Mean Corpuscular HGB CONC 32.6 g/dL (32.0-36.0); Mean Corpuscular Hemoglobin 29.2 pg (27.0-31.0); Mean Corpuscular Volume 89.5 fL (78.0-98.0); Platelet Count 201 10x3/uL (130-400); RBC Distribution Width 13.1 % (11.5-14.5); Red Blood Cell (RBC) Count 3.63 mill/uL (4.70-6.10)
[2024-03-23] MEDS: hydrALAZINE 20 MG/ML VIAL SLOW IVP SCH (04:59)
[2024-03-23 05:06] LABS: Anion Gap 15 mmol/L (10-20); BUN (Urea Nitrogen) 18 mg/dL (8.4-25.7); CK (CPK) 1047 U/L (30-200); Calc. Creatinine Clearance 69 mL/min (70-130); Calcium 8.8 mg/dL (7.8-10.44); Carbon Dioxide 24 mmol/L (23-31); Chloride 105 mmol/L (98-107); Estimated GFR 49; Glucose 150 mg/dL (80-115); Potassium 3.6 mmol/L (3.5-5.1); Sodium 140 mmol/L (136-145)
[2024-03-23] MEDS: Lactated Ringer's 1,000 ML IV SCH (09:16)
[2024-03-23] MEDS: Losartan 25 MG TAB PO SCH ×2 (15:04→15:05)
[2024-03-23] MEDS: cefTRIAXone\\ROCEPHIN 1 GM in Sodium Chloride 0.9% 100 ML IVPB SCH (15:05)
[2024-03-23] MEDS: Magnesium 2 GM/50 ML(in water) 2 GM in Premix 1 BAG IVPB SCH (16:02)
[2024-03-23 16:13] LABS: Magnesium 1.6 mg/dL (1.6-2.6)
[2024-03-24 03:44] LABS: #Basophils Less than 0.03 10x3/uL (0.0-0.2); %Basophils 0.3 % (0.0-1.0); %Lymphocytes 18.7 % (21.0-51.0); %Monocytes 11.2 % (0.0-10.0); %Neutrophils 67.2 % (42.0-75.0); Hematocrit 31.9 % (42.0-52.0); Hemoglobin 10.7 g/dL (14.0-18.0); Mean Corpuscular HGB CONC 33.5 g/dL (32.0-36.0); Mean Corpuscular Hemoglobin 29.6 pg (27.0-31.0); Mean Corpuscular Volume 88.1 fL (78.0-98.0); Mean Platelet Volume 10.3 fL (7.4-10.4); Platelet Count 206 10x3/uL (130-400); RBC Distribution Width 12.8 % (11.5-14.5); Red Blood Cell (RBC) Count 3.62 mill/uL (4.70-6.10)
[2024-03-24 04:02] LABS: Anion Gap 14 mmol/L (10-20); BUN (Urea Nitrogen) 14 mg/dL (8.4-25.7); Calc. Creatinine Clearance 74 mL/min (70-130); Calcium 9.1 mg/dL (7.8-10.44); Carbon Dioxide 26 mmol/L (23-31); Chloride 103 mmol/L (98-107); Estimated GFR 53; Glucose 171 mg/dL (80-115); Potassium 3.4 mmol/L (3.5-5.1); Sodium 140 mmol/L (136-145)
[2024-03-24] MEDS: Acetaminophen 325 MG TAB PO PRN (05:44)
[2024-03-24] MEDS: Losartan 25 MG TAB PO SCH (09:07)
[2024-03-24] MEDS: Potassium Chloride 20 MEQ TAB PO SCH (09:08)
[2024-03-24] MEDS: Hydrochlorothiazide 25 MG TAB PO SCH (09:09)
[2024-03-24] MEDS: hydrALAZINE 25 MG TAB PO SCH (09:09)
[2024-03-24 10:00] LABS: CK (CPK) 455 U/L (30-200); Magnesium 1.6 mg/dL (1.6-2.6)
[2024-03-24] MEDS: Magnesium Sulfate In Water 4 GM in Premix 1 BAG IVPB SCH (14:15)
[2024-03-24] MEDS: Magnesium 2 GM/50 ML(in water) 4 GM in Premix 1 BAG IVPB SCH (15:14)
[2024-03-24] MEDS: cefTRIAXone\\ROCEPHIN 2 GM in Sodium Chloride 0.9% 100 ML IVPB SCH (16:06)
[2024-03-24] MEDS ORDERED: Insulin Lispro 100 UNIT/ML 10 ML VIAL SC PRN (16:45)
[2024-03-24] MEDS: Insulin Lispro 100 UNIT/ML 10 ML VIAL SC PRN (17:14)
[2024-03-25 04:49] LABS: #Basophils 0.03 10x3/uL (0.0-0.2); %Basophils 0.7 % (0.0-1.0); %Eosinophils 1.2 % (0.0-10.0); %Lymphocytes 19.2 % (21.0-51.0); %Monocytes 14.8 % (0.0-10.0); %Neutrophils 63.4 % (42.0-75.0); Hematocrit 31.7 % (42.0-52.0); Hemoglobin 10.6 g/dL (14.0-18.0); Mean Corpuscular HGB CONC 33.4 g/dL (32.0-36.0); Mean Corpuscular Hemoglobin 29.7 pg (27.0-31.0); Mean Corpuscular Volume 88.8 fL (78.0-98.0); Mean Platelet Volume 10.5 fL (7.4-10.4); Platelet Count 229 10x3/uL (130-400); RBC Distribution Width 12.9 % (11.5-14.5); Red Blood Cell (RBC) Count 3.57 mill/uL (4.70-6.10)
[2024-03-25 05:05] LABS: Anion Gap 15 mmol/L (10-20); BUN (Urea Nitrogen) 15 mg/dL (8.4-25.7); Calc. Creatinine Clearance 69 mL/min (70-130); Calcium 8.8 mg/dL (7.8-10.44); Carbon Dioxide 26 mmol/L (23-31); Chloride 101 mmol/L (98-107); Estimated GFR 49; Glucose 172 mg/dL (80-115); Potassium 3.3 mmol/L (3.5-5.1); Sodium 139 mmol/L (136-145)
[2024-03-25] MEDS: Carvedilol 25 MG TAB PO SCH (09:08)
[2024-03-25] MEDS: Potassium Chloride 20 MEQ TAB PO SCH (09:08)
[2024-03-25 11:15] VITALS: BP 167/80; TEMP 97.8
[2024-03-25] MEDS ORDERED: Carvedilol 25 MG TAB PO SCH (17:00)
== END 2024-03-25 16:00 | disposition home or self-care (01) | DRG 557 ==
LOC: ERS 15:24 → ERHOLD 22:16 → 2NO 03-21 17:13
PROVIDERS: ADMIT Student in an Organized Health Care Education/Training Program; ATTEND Internal Medicine
PROC: 5A09357 Assistance with Respiratory Ventilation, Less than 24 Consecutive Hours, Continuous Positive Airway Pressure (ICD-10-PCS; principal; 2024-03-23)
DX: M62.82 Rhabdomyolysis (principal); I21.A1 Myocardial infarction type 2; N17.9 Acute kidney failure, unspecified; L03.115 Cellulitis of right lower limb; E11.9 Type 2 diabetes mellitus without complications; N40.0 Benign prostatic hyperplasia without lower urinary tract symptoms; I10 Essential (primary) hypertension; Z98.890 Other specified postprocedural states; F41.9 Anxiety disorder, unspecified; Z79.899 Other long term (current) drug therapy; E87.6 Hypokalemia; Z79.84 Long term (current) use of oral hypoglycemic drugs
CPT/HCPCS: 36415; 36416; 70450; 71045; 71275; 80048; 80053; 81001; 82550; 83735; 83880; 84100; 84484; 85025; 93005; 93970; J0696; J1815; J3475; J3490; J7120; Q9967